=== PATIENT | female | born 1950 | race Caucasian/White ===

== ENCOUNTER 2017-07-26 23:49 | Emergency (ER) | payer MEDICARE ==
[2017-07-27] MEDS ORDERED: DIPHENOX-ATROP 2.5-0.025 MG 1 EACH TAB PO STA (00:18)
[2017-07-27] MEDS ORDERED: ONDANSETRON 4 MG/2 ML VIAL IVP STA (00:18)
[2017-07-27] MEDS ORDERED: SODIUM CHLORIDE 0.9% 1,000 ML IV STA ×2 (00:18)
--- NOTE | 2017-07-27 00:50 | ED ---
Nausea/Vomiting/Diarrhea HPI - General Chief complaint: Nausea/Vomiting/Diarrhea Stated complaint: Diarrhea x8 days Time Seen by Provider: 07/27/17 00:05 Source: patient, RN notes reviewed, old records reviewed Mode of arrival: ambulatory Limitations: no limitations - History of Present Illness Initial comments: This is a 66-year-old female presents emergency Department chief complaint of a days of diarrhea. He reports that she's been taking Imodium and Pepto-Bismol without any relief of her symptoms. She reports she has abdominal discomfort. She denies any blood in her stool. She states that she has no specific abdominal pain or tenderness. Patient states that she's had no fever or chills. She did have nausea, no vomiting today.Patient denies any recent fever , chills, shortness of breath, chest pain, back pain, abdominal pain, numbness or tingling, dysuria or hematuria, constipation, headaches or visual changes, or any other current symptoms - Related Data Home Medications Medication Instructions Recorded Confirmed Atorvastatin [Lipitor] 20 mg PO DAILY 09/11/15 07/26/17 Thyroid,Pork [[place] Thyroid] 60 mg PO BID 09/11/15 07/26/17 Valsartan/Hydrochlorothiazide 1 each PO DAILY 09/11/15 07/26/17 [Valsartan-Hctz 160-12.5 mg Tab] amLODIPine BESYLATE [Norvasc] 5 mg PO DAILY 09/11/15 07/26/17 Previous Rx's Medication Instructions Recorded Ciprofloxacin HCl [Cipro] 500 mg PO Q12HR #10 tab 07/27/17 Diphenox-Atrop 2.5-0.025 mg 1 tab PO QID PRN #12 tablet 07/27/17 [Lomotil] Allergies Allergy/AdvReac Type Severity Reaction Status Date / Time No Known Allergies Allergy Verified 07/26/17 23:57 Review of Systems ROS Statement: Those systems with pertinent positive or pertinent negative responses have been documented in the HPI. ROS Other: All systems not noted in ROS Statement are negative. Past Medical History Past Medical History: Asthma, Hypertension History of Any Multi-Drug Resistant Organisms: None Reported Past Surgical History: Hysterectomy Past Psychological History: No Psychological Hx Reported Smoking Status: Former smoker Past Alcohol Use History: None Reported Past Drug Use History: None Reported General Exam - General Exam Comments Initial Comments: 66-year-old female. No distress. Limitations: no limitations General appearance: alert, in no apparent distress Head exam: Present: atraumatic, normocephalic, normal inspection Eye exam: Present: normal appearance, PERRL, EOMI. Absent: scleral icterus, conjunctival injection, periorbital swelling ENT exam: Present: normal exam, mucous membranes moist Neck exam: Present: normal inspection Respiratory exam: Present: normal lung sounds bilaterally. Absent: respiratory distress, wheezes, rales, rhonchi, stridor Cardiovascular Exam: Present: regular rate, normal rhythm, normal heart sounds. Absent: systolic murmur, diastolic murmur, rubs, gallop, clicks GI/Abdominal exam: Present: soft, normal bowel sounds. Absent: distended, tenderness, guarding, rebound, rigid Extremities exam: Present: normal inspection, full ROM, normal capillary refill. Absent: tenderness, pedal edema, joint swelling, calf tenderness Back exam: Present: normal inspection Neurological exam: Present: alert, oriented X3, CN II-XII intact Psychiatric exam: Present: normal affect, normal mood Course Vital Signs 07/26/17 07/27/17 23:55 02:32 Temperature 96.8 F L 97.4 F L Pulse Rate 83 78 Respiratory 18 16 Rate Blood Pressure 133/74 126/71 O2 Sat by Pulse 97 98 Oximetry Medical Decision Making - Medical Decision Making This patient is a 66 year old female with CC of diarrhea for 8 days. She reports it started after she ate some food taht did not agree with her. Patient states she has no abdominal pain, and patient denies any other symptoms. Patient was concerned of dehydration. Patient was given lab work and stool sample obtained. Patient has positve fecal occult blood test. At this time with proloned diarrhea and positive occult, I will treat patient with 5 days of cipro. Patient given first dose in EC. Discussed prompt follow up with PCP and stool cuture pending. Discussed return parameters including fever and abodminal pain. - Lab Data Result diagrams: 07/27/17 00:36 07/27/17 00:36 Lab Results 07/27/17 07/27/17 07/27/17 Range/Units 00:36 00:36 00:36 WBC 8.5 (3.8-10.6) k/uL RBC 4.61 (3.80-5.40) m/uL Hgb 13.8 (11.4-16.0) gm/dL Hct 40.1 (34.0-46.0) % MCV 86.9 (80.0-100.0) fL MCH 30.0 (25.0-35.0) pg MCHC 34.5 (31.0-37.0) g/dL RDW 11.5 (11.5-15.5) % Plt Count 339 (150-450) k/uL Neutrophils % 80 % Lymphocytes % 11 % Monocytes % 6 % Eosinophils % 1 % Basophils % 0 % Neutrophils # 6.9 (1.3-7.7) k/uL Lymphocytes # 1.0 (1.0-4.8) k/uL Monocytes # 0.5 (0-1.0) k/uL Eosinophils # 0.1 (0-0.7) k/uL Basophils # 0.0 (0-0.2) k/uL Sodium (137-145) mmol/L Potassium (3.5-5.1) mmol/L Chloride (98-107) mmol/L Carbon Dioxide (22-30) mmol/L Anion Gap mmol/L BUN (7-17) mg/dL Creatinine (0.52-1.04) mg/dL Est GFR (MDRD) Af Amer (>60 ml/min/1.73 sqM) Est GFR (MDRD) Non-Af (>60 ml/min/1.73 sqM) Glucose (74-99) mg/dL Calcium (8.4-10.2) mg/dL Total Bilirubin (0.2-1.3) mg/dL AST (14-36) U/L ALT (9-52) U/L Alkaline Phosphatase (38-126) U/L Total Protein (6.3-8.2) g/dL Albumin (3.5-5.0) g/dL Amylase 49 (30-110) U/L Lipase 45 (23-300) U/L Urine Color Yellow Urine Appearance Clear (Clear) Urine pH 5.5 (5.0-8.0) Ur Specific [place] 1.015 (1.001-1.035) Urine Protein 1+ H (Negative) Urine Glucose (UA) Negative (Negative) Urine Ketones Negative (Negative) Urine Blood Negative (Negative) Urine Nitrite Negative (Negative) Urine Bilirubin Negative (Negative) Urine Urobilinogen <2.0 (<2.0) mg/dL Ur Leukocyte Esterase Negative (Negative) Stool Occult Blood (Negative) C. difficile (EIA) Intrp (Negative) 07/27/17 07/27/17 07/27/17 Range/Units 00:36 00:36 00:50 WBC (3.8-10.6) k/uL RBC (3.80-5.40) m/uL Hgb (11.4-16.0) gm/dL Hct (34.0-46.0) % MCV (80.0-100.0) fL MCH (25.0-35.0) pg MCHC (31.0-37.0) g/dL RDW (11.5-15.5) % Plt Count (150-450) k/uL Neutrophils % % Lymphocytes % % Monocytes % % Eosinophils % % Basophils % % Neutrophils # (1.3-7.7) k/uL Lymphocytes # (1.0-4.8) k/uL Monocytes # (0-1.0) k/uL Eosinophils # (0-0.7) k/uL Basophils # (0-0.2) k/uL Sodium 137 (137-145) mmol/L Potassium 3.7 (3.5-5.1) mmol/L Chloride 99 (98-107) mmol/L Carbon Dioxide 25 (22-30) mmol/L Anion Gap 13 mmol/L BUN 17 (7-17) mg/dL Creatinine 0.80 (0.52-1.04) mg/dL Est GFR (MDRD) Af Amer >60 (>60 ml/min/1.73 sqM) Est GFR (MDRD) Non-Af >60 (>60 ml/min/1.73 sqM) Glucose 102 H (74-99) mg/dL Calcium 9.6 (8.4-10.2) mg/dL Total Bilirubin 1.0 (0.2-1.3) mg/dL AST 23 (14-36) U/L ALT 26 (9-52) U/L Alkaline Phosphatase 65 (38-126) U/L Total Protein 6.7 (6.3-8.2) g/dL Albumin 4.1 (3.5-5.0) g/dL Amylase (30-110) U/L Lipase (23-300) U/L Urine Color Urine Appearance (Clear) Urine pH (5.0-8.0) Ur Specific [place] (1.001-1.035) Urine Protein (Negative) Urine Glucose (UA) (Negative) Urine Ketones (Negative) Urine Blood (Negative) Urine Nitrite (Negative) Urine Bilirubin (Negative) Urine Urobilinogen (<2.0) mg/dL Ur Leukocyte Esterase (Negative) Stool Occult Blood Positive H (Negative) C. difficile (EIA) Intrp Negative (Negative) - Radiology Data Radiology results: report reviewed JUB shows normal bowel gas pattern. Disposition Clinical Impression: Diarrhea, Occult blood positive stool Disposition: HOME SELF-CARE Condition: Good Instructions: Acute Diarrhea (ED) Additional Instructions: Patient advised to follow-up with PCP within the next 1-2 days. Rest remain hydrated. Take the medicine as prescribed. Return to emergency department if any alarming signs or symptoms occur. Prescriptions: Ciprofloxacin HCl [Cipro] 500 mg PO Q12HR #10 tab Diphenox-Atrop 2.5-0.025 mg [Lomotil] 1 tab PO QID PRN #12 tablet PRN Reason: Diarrhea Referrals: Ramana John DO [Primary Care Provider] - 1-2 days Tomeka Kapoor MD [STAFF PHYSICIAN] - 1-2 days Time of Disposition: 02:13
[2017-07-27 01:02] LABS: Basophils % (A) 0 %; Eosinophils # (A) 0.1 k/uL (0-0.7); Eosinophils % (A) 1 %; HCT 40.1 % (34.0-46.0); HGB 13.8 gm/dL (11.4-16.0); Lymphocytes % (A) 11 %; MCHC 34.5 g/dL (31.0-37.0); MCV 86.9 fL (80.0-100.0); Mean Platelet Volume 6.1; Monocytes # (A) 0.5 k/uL (0-1.0); Monocytes % (A) 6 %; Neutrophils # (A) 6.9 k/uL (1.3-7.7); Neutrophils % (A) 80 %; Platelet Count 339 k/uL (150-450); RBC 4.61 m/uL (3.80-5.40); RDW 11.5 % (11.5-15.5); WBC 8.5 k/uL (3.8-10.6)
[2017-07-27 01:05] LABS: Appearance,Urine Clear (Clear); Color,Urine Yellow; Glucose,Urine (UA) Negative (Negative); Ketones,Urine Negative (Negative); PH, Urine 5.5 (5.0-8.0); Protein,Urine 1+ (Negative); Specific Gravity,Urine 1.015 (1.001-1.035)
[2017-07-27 01:06] LABS: Bilirubin,Urine Negative (Negative); Blood,Urine Negative (Negative); Leukocyte Esterase,Urine Negative (Negative); Nitrite,Urine Negative (Negative); Urobilinogen,Urine <2.0 mg/dL (<2.0)
[2017-07-27 01:10] LABS: Amylase 49 U/L (30-110); Lipase 45 U/L (23-300)
--- NOTE | 2017-07-27 01:10 | XR ---
EXAMINATION TYPE: XR KUB DATE OF EXAM: 07/27/2017 COMPARISON: NONE HISTORY: Diarrhea for one week. Weakness. TECHNIQUE: 2 views FINDINGS: There is no sign of intestinal obstruction or pneumoperitoneum. Fecal pattern is normal. Th ere are no pathologic calcifications over the kidneys. Lung bases are clear. There is no evidence of a mass. IMPRESSION: Nonacute abdomen.
[2017-07-27] MEDS ORDERED: SODIUM CHLORIDE 0.9% 1,000 ML IV SCH (01:45)
[2017-07-27 01:53] LABS: ALT 26 U/L (9-52); AST 23 U/L (14-36); Albumin 4.1 g/dL (3.5-5.0); Alkaline Phosphatase 65 U/L (38-126); Anion Gap 13 mmol/L; Blood Urea Nitrogen 17 mg/dL (7-17); Calcium 9.6 mg/dL (8.4-10.2); Carbon Dioxide 25 mmol/L (22-30); Chloride 99 mmol/L (98-107); Glucose 102 mg/dL (74-99); Potassium 3.7 mmol/L (3.5-5.1); Sodium 137 mmol/L (137-145); Total Protein 6.7 g/dL (6.3-8.2)
[2017-07-27] MEDS ORDERED: CIPROFLOXACIN HCL 500 MG TAB PO STA (02:13)
[2017-07-27] MEDS ORDERED: DIPHENOX-ATROP STARTER PACK 8 TAB BTL PO STA (02:14)
[2017-07-27 02:33] VITALS: BP 126/71; PULSE 78; RESP 16; TEMP 97.4
[2017-08-06 10:22] LABS: Hyaline Casts,Urine 137 /lpf (0-2); Mucus,Urine Many /hpf; Squamous Epithelial Cell,Urine 2 /hpf (0-4); WBC,Urine 9 /hpf (0-5)
== END 2017-07-27 02:40 | disposition home or self-care (01) ==
LOC: EC 23:49
DX: R19.7 Diarrhea, unspecified (principal); R19.5 Other fecal abnormalities; R11.0 Nausea; I10 Essential (primary) hypertension; Z90.710 Acquired absence of both cervix and uterus; Z87.891 Personal history of nicotine dependence; Z79.899 Other long term (current) drug therapy
CPT/HCPCS: 36415; 74018; 80053; 81001; 82150; 82272; 83690; 85025; 87045; 87046; 87324; 89055; 96361; 96374; 99284

== ENCOUNTER → 2018-08-11 | Outpatient (CLI) | payer MEDICARE ==
[2018-08-11 14:27] LABS: Blood Urea Nitrogen 16 mg/dL (7-17)
--- NOTE | 2018-08-11 15:35 | CT ---
EXAMINATION TYPE: CT brain w con DATE OF EXAM: 08/11/2018 COMPARISON: MRI/MRA brain 2012 HISTORY: headaches RT side CT DLP: 1222 mGycm Automated exposure control for dose reduction was used. CONTRAST: CT scan of the head is performed with IV Contrast, patient injected with 100 mL of Isovue 300. FINDINGS: There is no abnormal enhancing mass or midline shift identified. The ventricles and sulci are within normal limits in size. Some low-attenuation in the deep and periventricular white matter remains pre sent. Hyperostosis frontalis is seen. The globes are intact and the visualized sinuses are clear. IMPRESSION: Persistent mild white matter changes felt to be on basis of product of chronic small vess el ischemic change. No enhancing masses are noted.
== END | disposition home or self-care (01) ==
LOC: RADCTMAIN 13:32
PROVIDERS: ATTEND Family Medicine
DX: R51 Headache (principal); Z01.812 Encounter for preprocedural laboratory examination
CPT/HCPCS: 82565; 84520; 70460; Q9967

== ENCOUNTER → 2018-11-15 | Outpatient (CLI) | payer MEDICARE ==
[2018-11-15 14:44] VITALS: BP 136/83; PULSE 80; RESP 18; TEMP 98.3; BMI 32.2
--- NOTE | 2018-11-15 15:44 | P.HPOB ---
History of Present Illness H&P Date: 11/15/18 Chief Complaint: The patient is here for her routine gynecologic exam and ma mmogram. This is a 68-year-old G to P2 with an LMP of 1989. The patient is here to establish with this office. She is status post [facility] BSO in 1989 for benign reasons. The patient has been told she has a cystocele and rectocele. She has had some issues with urinary leakage. She has considered surgical options, but has decided to proceed conservatively without surgery. The patient is otherwise without gynecologic complaints. It is been about 4 years since her last pelvic exam. Review of Systems She believes she is getting about 25 pounds over the last year. She had previously been eating healthy, but more recently has gotten off of this. She denies respiratory, cardiac and G.I. problems. She denies maltreatment or problems with falling. : she occasionally will have leakage when she stands up from a reclined position Past Medical History Past Medical History: Asthma, GERD/Reflux, Hyperlipidemia, Hypertension, Thyroid Disorder Additional Past Medical History / Comment(s): Hypothyroid. Osteopenia status post Actonel use for 5 years. PAST [employer] HISTORY: She has no history of STDs. She did have endometriosis. She has tested BRCA negative. History of Any Multi-Drug Resistant Organisms: None Reported Past Surgical History: Hysterectomy Additional Past Surgical History / Comment(s): [facility] BSO in 1989. Past Psychological History: No Psychological Hx Reported Smoking Status: Former smoker Past Alcohol Use History: None Reported Additional Past Alcohol Use History / Comment(s): Brief smoker as a teenager. 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 - Past Family History Sister(s) Family Medical History: Cancer Additional Family Medical History / Comment(s): 5 of 7 sisters had breast cancer. 3 of them are positive for BRCA. One sister who had breast cancer also had ovarian cancer. Niece Family Medical History: Cancer Additional Family Medical History / Comment(s): Breast cancer. Medications and Allergies Home Medications Medication Instructions Recorded Confirmed Type Atorvastatin [Lipitor] 20 mg PO DAILY 09/11/15 11/15/18 History Thyroid,Pork [[place] Thyroid] 60 mg PO BID 09/11/15 07/26/17 History amLODIPine BESYLATE [Norvasc] 5 mg PO DAILY 09/11/15 11/15/18 History Calcium Carbonate [Calcium] 600 mg PO 11/15/18 History Estradiol [Vagifem] 10 mcg VG 11/15/18 History Fish Oil/Dha/Epa [Fish Oil 1,200 1 each PO 11/15/18 History mg Fish Oil] Olmesartan [Benicar] 20 mg PO DAILY 11/15/18 11/15/18 History Omeprazole [PriLOSEC] 10 mg PO 11/15/18 History Solifenacin Succinate [Vesicare] 10 mg PO 11/15/18 History Allergies Allergy/AdvReac Type Severity Reaction Status Date / Time No Known Allergies Allergy Verified 07/26/17 23:57 Exam Vital Signs Temp Pulse Resp BP Pulse Ox 11/15/18 14:39 98.3 F 80 18 136/83 97 Intake and Output 11/15/18 11/15/18 11/15/18 06:59 14:59 22:59 Other: Weight 96.162 kg Height 5'8", weight 212 pounds, BMI 32.2. This is a well-developed well-nourished white female who is alert and oriented times 3 in no acute distress. HEENT: Within normal limits. NECK: Supple without mass or thyromegaly. CHEST AND LUNGS: Clear to auscultation. HEART: Regular rate and rhythm. BREASTS: Are without mass or discharge. AXILLARY EXAM: Negative for adenopathy. BACK: Negative for CVA tenderness. ABDOMEN: Soft, nontender, without palpable masses. PELVIC EXAM: External genitalia appears normal with mild to moderate atrophy. Vagina appears normal mild to moderate atrophy. There is a grade 1 to 2 cystocele. There is mild to moderate mobility with cough and Valsalva. No urinary leakage was demonstrated. There is a grade 2 rectocele which approaches the introitus with Valsalva. Bimanual examination is negative for mass or tenderness. RECTAL EXAM: Rectovaginal exam is negative for mass or tenderness and is negative for occult blood. The rectal exam disconfirm the rectocele. There is no evidence of enterocele. EXTREMITIES: Nontender. IMPRESSION: 1. 68-year-old menopausal female status post DEE for benign reasons with grade 2 cystocele and grade 2 to 3 the rectocele. 2. History of osteopenia status post 5 years use of Actonel. 3. Mild stress urinary incontinence and occasional urge incontinence (mixed). PLAN: 1. Pap smears have been discontinued. 2. Self breast awareness was discussed with the patient. 3. Screening mammogram will be done today. 4. Osteoporosis prevention was discussed. I have stressed the importance of adequate calcium, vitamin D and regular exercise. Recommended amounts of calcium and vitamin D were also discussed. I have recommended repeating the bonus he testing since it is been about 2 years since her last one. The order slip was given to the patient for this. 5. She does receive flu shots in the fall. 6. We had a long discussion regarding cystocele, rectocele, and urinary incontinence. I recommended that she do [place] exercises with timed voids. If urinary incontinence is worsening, she will consider reevaluation by Dr. Juarez, her urologist. Rectocele and cystocele repair can be evaluated by a transit manager. We also discussed the option of a gynecologic urologist for these types of problems. 7. She will return in one to 2 years for her well woman exam.
--- NOTE | 2018-11-16 09:36 | MM ---
Reason for exam: screening (asymptomatic). Last mammogram was performed 19 years and 2 months ago. History: Patient is postmenopausal. Family history of premenopausal breast cancer in 2 sisters. Physical Findings: A clinical breast exam by your physician is recommended on an annual basis and results should be correlated with mammographic findings. MG 3D Screening Mammo W/Cad Bilateral CC and MLO view(s) were taken. Prior study comparison: November 04, 2017, mammogram. October 29, 2016, mammogram. October 24, 2015, mammogram. October 18, 2014, mammogram. There are scattered fibroglandular densities. Benign appearing bilateral calcifications. Previous mammotome biopsy in the right breast. No significant changes when compared with prior studies. ASSESSMENT: Benign, BI-RAD 2 RECOMMENDATION: Routine screening mammogram of both breasts in 1 year.
== END | disposition home or self-care (01) ==
LOC: WWCWWP 14:22
PROVIDERS: ATTEND Obstetrics & Gynecology
DX: Z12.31 Encounter for screening mammogram for malignant neoplasm of breast (principal)
CPT/HCPCS: 77063; 77067

== ENCOUNTER → 2019-04-17 | Outpatient (CLI) | payer MEDICARE ==
--- NOTE | 2019-04-18 04:15 | BD ---
EXAMINATION TYPE: Axial Bone Density DATE OF EXAM: 04/17/2019 COMPARISON: 07/14/2004 CLINICAL HISTORY: 68-year-old female postmenopausal screening Height: 66.2 IN Weight: 183 LBS FRAX RISK QUESTIONS: History of Fracture in Adulthood: LEFT WRIST AGE 50 Secondary Osteoporosis: 3. Menopause before 45: YES TOTAL HYST AGE 38 RISK FACTORS HISTORY OF: History of Wrist Fracture: YES LEFT WRIST AGE 50 Active: YES Postmenopausal woman: TOTAL HYST AGE 38 Take estrogen and/or progesterone medications: NOT NOW How long: TOOK FROM AGE [age] Lost more than 2 inches in height since high school: YES 06/03" MEDICATIONS: Thyroid Medications: ARMOUR Which medication: 20 YEARS+ Additional Medications: CALCIUM, VIT D, ARMOUR, AMLODIPINE, VALSARTAN/HCT, ATORVASTATIN, EXAM MEASUREMENTS: Bone mineral densitometry was performed using the [employer] System. Bone mineral density as measured about the Lumbar spine is: ----- L1-L4(G/cm2): 1.099 T Score Values are as follows: ----- L2: -0.9 ----- L3: -0.1 ----- L4: -0.3 ----- L1-L4: -0.7 Bone mineral density has: Increased 1.0% since study of: 07/14/2004 Bone mineral density about the R hip (g/cm2): 0.863 Bone mineral density about the L hip (g/cm2): 0.864 T Score values are as follows: -----R Neck: -1.3 -----L Neck: -1.5 -----R Total: -1.4 -----L Total: -1.7 Bone mineral density has: Decreased -11.0% since study of: 07/14/2004 IMPRESSION: Osteopenia (T Score between -2.5 and -1). There is slightly increased risk of fracture and the patient may be considered for treatment. Re-Screen 2-5 years. NOTE: T-SCORE=SD OF THE YOUNG ADULT MEAN.
== END | disposition home or self-care (01) ==
LOC: RADBDWWP 12:20
PROVIDERS: ATTEND Family Medicine
DX: M85.89 Other specified disorders of bone density and structure, multiple sites (principal); M89.8X9 Other specified disorders of bone, unspecified site
CPT/HCPCS: 77080

== ENCOUNTER → 2019-08-02 | Outpatient (CLI) | payer MEDICARE ==
--- NOTE | 2019-08-02 08:24 | US ---
EXAMINATION TYPE: US abdomen complete DATE OF EXAM: 08/02/2019 COMPARISON: NONE CLINICAL HISTORY: R19.7 Diarrhea, unspecified. EXAM MEASUREMENTS: Liver Length: 15.4 cm Gallbladder Wall: 0.1 cm CBD: 0.4 cm Spleen: 10.2 cm Right Kidney: 11.7 x 3.9 x 4.9 cm Left Kidney: 11.3 x 3.8 x 4.3 cm Pancreas: Tail obscured by overlying bowel gas, otherwise wnl Liver: wnl Gallbladder: wnl Evidence for sonographic Spivey's sign: CBD: wnl Spleen: wnl Right Kidney: mild hydronephrosis. Left Kidney: echogenic foci, possible stone measuring 0.3 x 0.1 x 0.2cm Upper IVC: wnl Abd Aorta: bifurcation obscured by overlying bowel gas The liver is homogenous. The intrahepatic portion of the IVC and proximal abdominal aorta are within normal limits. There is no evidence of cholelithiasis. Common bile duct is unremarkable. The visu alized portions of the pancreas are homogenous. The spleen is unremarkable. No renal lesions are seen. IMPRESSION: 1. Mild right-sided hydronephrosis. Etiology of is not seen on ultrasound. 2. Possible punctate 3 mm left renal calculus versus small vessel atherosclerosis.
--- NOTE | 2019-08-02 08:26 | US ---
EXAMINATION TYPE: US pelvic limited DATE OF EXAM: 08/02/2019 COMPARISON: NONE CLINICAL HISTORY: R19.7 Diarrhea, unspecified. TECHNIQUE: Transabdominal (TA). Date of LMP: 30 years prior EXAM MEASUREMENTS: Uterus: Surgically absent Endometrial Stripe: Surgically absent Right Ovary: Surgically absent Left Ovary: Surgically absent 1. Uterus: Surgically absent 2. Endometrium: Surgically absent 3. Right Ovary: Surgically absent 4. Left Ovary: Surgically absent 5. Bilateral Adnexa: wnl 6. Posterior cul-de-sac: wnl 7. Bladder: wnl IMPRESSION: Surgical absence of the uterus and bilateral ovaries. Bowel is seen in the pelvis. Urinar y bladder is unremarkable.
== END | disposition home or self-care (01) ==
LOC: RADUSWWP 06:51
PROVIDERS: ATTEND Family Medicine
DX: R19.7 Diarrhea, unspecified (principal); N13.30 Unspecified hydronephrosis; Z90.722 Acquired absence of ovaries, bilateral; Z90.710 Acquired absence of both cervix and uterus
CPT/HCPCS: 76700; 76857

== ENCOUNTER → 2019-08-17 | Outpatient (CLI) | payer MEDICARE ==
[2019-08-17 13:47] LABS: African American GFR (CKD) >90 (>60 ml/min/1.73 sqM); Blood Urea Nitrogen 17 mg/dL (7-17); Non-African American GFR(CKD) 87 (>60 ml/min/1.73 sqM)
--- NOTE | 2019-08-17 16:48 | CT ---
EXAMINATION TYPE: CT abdomen pelvis w con DATE OF EXAM: 08/17/2019 HISTORY: Hydronephrosis CT DLP: 922.4mGycm Automated Exposure Control for Dose Reduction was Utilized. CONTRAST: CT scan of the abdomen and pelvis is performed with IV Contrast, patient injected with 100 mL of Isov ue 300. COMPARISON: Abdominal ultrasound dated 08/02/2019 and pelvic ultrasound of the same date. FINDINGS: LUNG BASES: No significant abnormality is appreciated. LIVER/GB: No significant abnormality is appreciated. No radiopaque calculi in the gallbladder. No int rahepatic biliary ductal dilatation. PANCREAS: No significant abnormality is seen. No ductal dilatation seen. SPLEEN: No splenomegaly. ADRENALS: No nodularity or thickening. KIDNEYS: There is redemonstration of moderate right-sided hydronephrosis and proximal hydroureter. Th e mid and distal ureter are nondilated. There is focal narrowing on sagittal images series 7 image 38 of the ureter at the ureteropelvic junction. This is also seen on coronal image 39. There is delayed excretion into the ureter on the right in comparison to the left on delayed acquisition. Very subtle delayed enhancement of the right kidney on cortical medullary imaging. No radiopaque obstructing raissa culus. No left-sided hydronephrosis. BOWEL: Small hiatal hernia. No dilated large or small bowel. Suboptimal evaluation of the colon is co ntrast does not extend into the colon and there is decompression of the transverse colon, sigmoid col on and descending colon. LYMPH NODES: No greater than 1cm abdominal or pelvic lymph nodes are appreciated. OSSEOUS STRUCTURES: Mild diffuse osseous demineralization. Multilevel Schmorl's nodes. Mild degenerat nura change of the spine. OTHER: Moderate atherosclerosis of the abdominal aorta and its branches is seen. Very small fat fille d periumbilical hernia. IMPRESSION: Persistent moderate right hydronephrosis with narrowing of the right ureteropelvic junction. No extri nsic masses seen nor radiopaque obstructing calculus. Primary consideration is for ureteropelvic stri cture of unknown chronicity.
== END | disposition home or self-care (01) ==
LOC: RADCTMAIN 12:40
PROVIDERS: ATTEND Urology
DX: N13.30 Unspecified hydronephrosis (principal)
CPT/HCPCS: 82565; 84520; 74177; 36415; Q9967

== ENCOUNTER → 2019-12-06 | Outpatient (CLI) | payer MEDICARE ==
--- NOTE | 2019-12-07 10:44 | MM ---
Reason for exam: screening (asymptomatic). Last mammogram was performed 1 year and 1 month ago. History: Patient is postmenopausal. Family history of premenopausal breast cancer in 2 sisters. Took hormonal contraceptives for 7 years. Physical Findings: A clinical breast exam by your physician is recommended on an annual basis and results should be correlated with mammographic findings. MG 3D Screening Mammo W/Cad Bilateral CC and MLO view(s) were taken. Prior study comparison: November 15, 2018, bilateral MG 3d screening mammo w/cad. November 04, 2017, mammogram. The breast tissue is heterogeneously dense. This may lower the sensitivity of mammography. Stable benign calcifications. There is no discrete abnormality. No significant changes when compared with prior studies. ASSESSMENT: Benign, BI-RAD 2 RECOMMENDATION: Routine screening mammogram of both breasts in 1 year.
== END | disposition home or self-care (01) ==
LOC: RADMAMWWP 08:51
PROVIDERS: ATTEND Obstetrics & Gynecology
DX: Z08 Encounter for follow-up examination after completed treatment for malignant neoplasm (principal); Z80.3 Family history of malignant neoplasm of breast
CPT/HCPCS: 77063; 77067

== ENCOUNTER → 2019-12-06 | Outpatient (CLI) | payer MEDICARE ==
--- NOTE | 2019-12-06 09:09 | P.HPOB ---
History of Present Illness H&P Date: 12/06/19 Chief Complaint: The patient is here for her routine gynecologic exam and ma mmogram. This is a 69-year-old with an LMP of 1989. She is status post DEE/BSO in 1989 for benign reasons. The patient states she has occasionally noticed a slight fullness in the vagina and thinks at times she can touch a bulge at the vaginal opening. She states it is not causing her any significant problems at this time, but she is considering some type of surgical treatment for pelvic prolapse in the future. She is otherwise without complaints. Review of Systems She has lost about 15 pounds over the past year. She denies respiratory, cardiac and G.I. problems. She denies maltreatment or problems with falling. : she denies any significant problems with urinary leakage. Past Medical History Past Medical History: Asthma, GERD/Reflux, Hyperlipidemia, Hypertension, Thyroid Disorder Additional Past Medical History / Comment(s): Hypothyroid. Osteopenia status post Actonel use for 5 years. 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 She did have endometriosis. She has tested BRCA negative. History of Any Multi-Drug Resistant Organisms: None Reported Past Surgical History: Hysterectomy Additional Past Surgical History / Comment(s): DEE BSO in 1989. Foot surgery. Past Psychological History: No Psychological Hx Reported Smoking Status: Former smoker Past Alcohol Use History: None Reported Additional Past Alcohol Use History / Comment(s): Brief smoker as a teenager. 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 - Past Family History Sister(s) Family Medical History: Cancer Additional Family Medical History / Comment(s): 5 of 7 sisters had breast cancer. 3 of them are positive for BRCA. One sister who had breast cancer also had ovarian cancer. Niece Family Medical History: Cancer Additional Family Medical History / Comment(s): Breast cancer. Medications and Allergies Home Medications Medication Instructions Recorded Confirmed Type Atorvastatin [Lipitor] 20 mg PO DAILY 09/11/15 12/06/19 History Thyroid,Pork [[place] Thyroid] 60 mg PO BID 09/11/15 12/06/19 History amLODIPine BESYLATE [Norvasc] 5 mg PO DAILY 09/11/15 12/06/19 History Calcium Carbonate [Calcium] 600 mg PO DAILY 11/15/18 12/06/19 History Estradiol [Vagifem] 10 mcg VG DAILY 11/15/18 12/06/19 History Olmesartan [Benicar] 20 mg PO DAILY 11/15/18 12/06/19 History Allergies Allergy/AdvReac Type Severity Reaction Status Date / Time No Known Allergies Allergy Verified 12/06/19 08:02 Exam Vital Signs Temp Pulse Resp BP Pulse Ox 12/06/19 08:07 98.3 F 66 18 133/82 97 Intake and Output 12/05/19 12/06/19 12/06/19 22:59 06:59 14:59 Other: Weight 87.997 kg Height 5 feet 7 inches, weight 197 pounds, BMI 30.4. This is a well-developed well-nourished white female who is alert and oriented times 3 in no acute distress. HEENT: Within normal limits. NECK: Supple without mass or thyromegaly. CHEST AND LUNGS: Clear to auscultation. HEART: Regular rate and rhythm. BREASTS: Are without mass or discharge. AXILLARY EXAM: Negative for adenopathy. BACK: Negative for CVA tenderness. ABDOMEN: Soft, nontender, without palpable masses. PELVIC EXAM: External genitalia appears normal with mild to moderate atrophy. Vagina appears normal with mild atrophy. There is a grade 2 rectocele noted at rest. No significant cystocele is noted at rest. With Valsalva the rectocele approaches the introitus and a grade 1 cystocele is noted The vaginal cuff is well supported. No significant enterocele is noted. Bimanual examination is negative for mass or tenderness. RECTAL EXAM: Rectovaginal exam is negative for mass or tenderness and is negative for occult blood. Rectal exam does confirm a rectocele. EXTREMITIES: Nontender. IMPRESSION: 1. 69-YEAR-OLD MENOPAUSAL FEMALE STATUS POST DEE/BSO FOR BENIGN REASONS WITH MINIMALLY SYMPTOMATIC GRADE 2-3 RECTOCELE AND A GRADE 1 CYSTOCELE. 2. History of osteopenia status post 5 years use of Actonel. 3.strong family history of breast cancer in several sisters. The patient tested negative for BRCA . PLAN: 1. PAP smears have been discontinued. 2. Self breast awareness was discussed with the patient. 3. screening mammogram will be done today. 4. Osteoporosis prevention was discussed. I have stressed the importance of adequate calcium, vitamin D and regular exercise. Recommended amounts of calcium and vitamin D were also discussed. We will plan on repeating bone density testing in approximately 2 years. 5. She is contemplating surgery for her rectocele. She is not interested in doing this at this time and, but she was instructed to call if she would like to proceed with this type of surgery and I can make a referral for her. 6. She was advised to return in one year for her annual well woman exam.
[2019-12-08 09:18] VITALS: BP 133/82; PULSE 66; RESP 18; TEMP 98.3
== END | disposition home or self-care (01) ==
LOC: WWCWWP 07:53
PROVIDERS: ATTEND Obstetrics & Gynecology
DX: Z53.9 Procedure and treatment not carried out, unspecified reason (principal)

== ENCOUNTER → 2020-12-18 | Outpatient (CLI) | payer MEDICARE ==
[2020-12-18 08:13] VITALS: BP 130/81; PULSE 78; RESP 16; TEMP 98.4
--- NOTE | 2020-12-18 09:07 | P.HPOB ---
History of Present Illness H&P Date: 12/18/20 Chief Complaint: The patient is here for her routine gynecologic exam and ma mmogram. This is a 70-year-old with an LMP of 1989. The patient is status post DEE/BSO in 1989 for benign reasons. She is having more fullness in the vagina and can notice a bulge slightly protruding at the vaginal opening. She has a known rectocele. She is also having some urinary incontinence with coughing and some urge incontinence if she does not get to the bathroom right away. She has seen someone at [facility] about the incontinence who recommended discussed surgery for the incontinence, but would need a document imaging manager to deal with the vaginal repairs. She would prefer to see one person to take care of these problems. She is otherwise without complaints. Review of Systems She has lost about 7 pounds over the past year. She denies respiratory, cardiac and G.I. problems. She has experienced occasional dizziness and is undergoing a workup for this. She denies maltreatment or problems with falling. : She has had some issues with urinary leakage as in the HPI. She has been able to avoid some of the issues by voiding frequently and knowing where restrooms are. Past Medical History Past Medical History: Asthma, GERD/Reflux, Hyperlipidemia, Hypertension, Thyroid Disorder Additional Past Medical History / Comment(s): Hypothyroid. Osteopenia status post Actonel use for 5 years. 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 She did have endometriosis. She has tested BRCA negative. History of Any Multi-Drug Resistant Organisms: None Reported Past Surgical History: Hysterectomy Additional Past Surgical History / Comment(s): DEE BSO in 1989. Foot surgery. Colonoscopy 2016(next after 7yr). Past Psychological History: No Psychological Hx Reported Smoking Status: Former smoker Past Alcohol Use History: Rare (0-1 per year) Additional Past Alcohol Use History / Comment(s): Brief smoker as a teenager. 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 - Past Family History Sister(s) Family Medical History: Cancer Additional Family Medical History / Comment(s): 5 of 7 sisters had breast cancer. 3 of them are positive for BRCA. One sister who had breast cancer also had ovarian cancer. Niece Family Medical History: Cancer Additional Family Medical History / Comment(s): Breast cancer. Medications and Allergies Home Medications Medication Instructions Recorded Confirmed Type Atorvastatin [Lipitor] 20 mg PO DAILY 09/11/15 12/18/20 History Thyroid,Pork [[place] Thyroid] 60 mg PO BID 09/11/15 12/18/20 History amLODIPine BESYLATE [Norvasc] 5 mg PO QAM 09/11/15 12/18/20 History Calcium Carbonate [Calcium] 600 mg PO QAM 11/15/18 12/18/20 History Estradiol [Vagifem] 10 mcg VG WEEKLY 11/15/18 12/18/20 History Olmesartan [Benicar] 20 mg PO HS 11/15/18 12/18/20 History Allergies Allergy/AdvReac Type Severity Reaction Status Date / Time No Known Allergies Allergy Verified 12/18/20 08:06 Exam Vital Signs Temp Pulse Resp BP Pulse Ox 12/18/20 08:09 98.4 F 78 16 130/81 96 Intake and Output 12/17/20 12/18/20 12/18/20 22:59 06:59 14:59 Other: Weight 86.183 kg Height 5 feet 8 inches, weight 190 pounds, BMI 28.9. This is a well-developed well-nourished white female who is alert and oriented times 3 in no acute distress. HEENT: Within normal limits. NECK: Supple without mass or thyromegaly. CHEST AND LUNGS: Clear to auscultation. HEART: Regular rate and rhythm. BREASTS: Are without mass or discharge. AXILLARY EXAM: Negative for adenopathy. BACK: Negative for CVA tenderness. ABDOMEN: Soft, nontender, without palpable masses. PELVIC EXAM: External genitalia appears normal with mild to moderate atrophy. Vagina appears normal with mild to moderate atrophy. The vaginal mucosa overlying the rectocele does not appear inflamed, thickened or ulcerated. There is a grade 3 rectocele which fills the introitus with Valsalva. There is a minimal cystocele with no urinary leakage demonstrated with Valsalva. Bimanual examination is negative for mass or tenderness. RECTAL EXAM: Rectovaginal exam is negative for mass or tenderness and is negative for occult blood. The rectal exam confirms a rectocele without sign ificant enterocele. EXTREMITIES: Nontender. IMPRESSION: 1. 70-year-old menopausal female status post DEE/BSO for benign reasons with symptomatic grade 3 rectocele. 2. Mixed urinary incontinence with minimal cystocele. 3. History of osteopenia status post 5 years use of Actonel in the past. 4. Strong family history of breast cancer in several sisters. The patient has tested negative for BRCA mutation. PLAN: 1. Pap smears have been discontinued. 2. Self breast awareness was discussed with the patient. 3. Screening mammogram will be done today. 4. We have had a long discussion regarding her rectocele and urinary incontinence. She would like to be referred for possible surgical correction and is interested in seeing a uro-document imaging manager. She will be referred to Dr. Huffman who works out of [facility] for evaluation and treatment. 5. Osteoporosis prevention was discussed. I have stressed the importance of adequate calcium, vitamin D and regular exercise. Recommended amounts of calcium and vitamin D were also discussed. She will be due for her own density testing next year and she will have this done at her next annual exam. 6. She has completed her Covid vaccination series and did get a flu shot last fall. 7. She states she did have a Cologuard test which was negative in February 2020 and plans on having another colonoscopy in 2 years. 8. She will continue to use Vagifem as directed. The electronic prescription will be sent to [facility]. 9. She was advised to return in one year for her annual well woman exam.
--- NOTE | 2020-12-18 14:02 | MM ---
Reason for exam: screening (asymptomatic). Last mammogram was performed 1 year ago. History: Patient is postmenopausal. Family history of premenopausal breast cancer in 2 sisters. Stereotactic core biopsy of the right breast. Took hormonal contraceptives for 7 years. Physical Findings: A clinical breast exam by your physician is recommended on an annual basis and results should be correlated with mammographic findings. MG 3D Screening Mammo W/Cad Bilateral CC and MLO view(s) were taken. Prior study comparison: December 06, 2019, bilateral MG 3d screening mammo w/cad. November 15, 2018, bilateral MG 3d screening mammo w/cad. There are scattered fibroglandular densities. Right biopsy clips. ASSESSMENT: Benign, BI-RAD 2 RECOMMENDATION: Routine screening mammogram of both breasts in 1 year.
== END ==
LOC: WWCWWP 07:48
PROVIDERS: ATTEND Obstetrics & Gynecology
DX: Z12.31 Encounter for screening mammogram for malignant neoplasm of breast (principal); Z01.419 Encounter for gynecological examination (general) (routine) without abnormal findings; N81.6 Rectocele; R32 Unspecified urinary incontinence; E03.9 Hypothyroidism, unspecified; N81.10 Cystocele, unspecified; E78.5 Hyperlipidemia, unspecified; I10 Essential (primary) hypertension; J45.909 Unspecified asthma, uncomplicated; Z87.39 Personal history of other diseases of the musculoskeletal system and connective tissue; Z87.891 Personal history of nicotine dependence; Z78.0 Asymptomatic menopausal state; Z80.3 Family history of malignant neoplasm of breast; Z90.722 Acquired absence of ovaries, bilateral; Z79.899 Other long term (current) drug therapy
CPT/HCPCS: 77063; 77067

== ENCOUNTER → 2021-08-29 | Outpatient (CLI) | payer MEDICARE ==
--- NOTE | 2021-08-29 09:15 | XR ---
EXAMINATION TYPE: XR toes LT DATE OF EXAM: 08/29/2021 COMPARISON: None available INDICATION: Left middle toe pain after kicking door plate TECHNIQUE: 2 views of the distal foot including the fifth toe. FINDINGS: Previous fixation of the first metatarsal head/neck with erosive changes bilaterally. Degenerative ch anges of the third distal interphalangeal joint with surrounding soft tissue swelling. No definite ac ady fracture line identified. IMPRESSION: No definite fracture line identified. Soft tissue swelling of the third toe.
== END | disposition home or self-care (01) ==
LOC: RADXRYALE 08:34
PROVIDERS: ATTEND Physician Assistant
DX: M79.89 Other specified soft tissue disorders (principal)

== ENCOUNTER → 2022-02-04 | Outpatient (CLI) | payer MEDICARE ==
[2022-02-04 11:40] VITALS: BP 144/81; PULSE 91; RESP 18; TEMP 97.9
--- NOTE | 2022-02-04 13:55 | P.HPOB ---
History of Present Illness H&P Date: 02/04/22 Chief Complaint: The patient is here for her routine gynecologic exam and ma mmogram. This is a 71-year-old with an LMP of 1989. She is status post DEE/BSO in 1989 for benign reasons. The patient underwent a retropubic tape sling procedure and rectocele repair by Dr. Oc Huffman at [facility] on 09/16/2021. She is very happy with the results. She has had an improvement in her urinary incontinence and the vaginal bulge. She is without gynecologic complaints. Review of Systems The patient has gained 3 pounds over the last year. She denies respiratory, cardiac, or G.I. problems. Past Medical History Past Medical History: Asthma, GERD/Reflux, Hyperlipidemia, Hypertension, Thyroid Disorder Additional Past Medical History / Comment(s): Hypothyroid. Osteopenia status post Actonel use for 5 years. 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 She did have endometriosis. She has tested BRCA negative. History of Any Multi-Drug Resistant Organisms: None Reported Past Surgical History: Hysterectomy Additional Past Surgical History / Comment(s): DEE BSO in 1989. Foot surgery. Colonoscopy 2015(next after 7yr). BLADDER SLING/RECTOCELE AUGUST 2021 Past Psychological History: No Psychological Hx Reported Smoking Status: Former smoker Past Alcohol Use History: Rare Additional Past Alcohol Use History / Comment(s): Brief smoker as a teenager. Past Drug Use History: None Reported Additional History: She has been since 1966 and is not sexually active. 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 - Past Family History Sister(s) Family Medical History: Cancer Additional Family Medical History / Comment(s): 5 of 7 sisters had breast cancer. 3 of them are positive for BRCA. One sister who had breast cancer also had ovarian cancer. Niece Family Medical History: Cancer Additional Family Medical History / Comment(s): Breast cancer. Medications and Allergies Home Medications Medication Instructions Recorded Confirmed Type Atorvastatin [Lipitor] 20 mg PO DAILY 09/11/15 02/04/22 History Thyroid,Pork [[place] Thyroid] 60 mg PO BID 09/11/15 02/04/22 History amLODIPine BESYLATE [Norvasc] 5 mg PO QAM 09/11/15 02/04/22 History Calcium Carbonate [Calcium] 600 mg PO QAM 11/15/18 02/04/22 History Olmesartan [Benicar] 20 mg PO HS 11/15/18 02/04/22 History estradioL [Vagifem] 10 mcg VG DIRECTED #24 tab 12/18/20 02/04/22 Rx Allergies Allergy/AdvReac Type Severity Reaction Status Date / Time No Known Allergies Allergy Verified 02/04/22 11:35 Exam Vital Signs Temp Pulse Resp BP Pulse Ox 02/04/22 11:36 97.9 F 91 18 144/81 95 Intake and Output 02/03/22 02/04/22 02/04/22 22:59 06:59 14:59 Other: Weight 87.543 kg Height 5 feet 8 inches, weight 193 pounds, BMI 29.3. This is a well-developed well-nourished white female who is alert and oriented times 3 in no acute distress. HEENT: Within normal limits. NECK: Supple without mass or thyromegaly. CHEST AND LUNGS: Clear to auscultation. HEART: Regular rate and rhythm. BREASTS: Are without mass or discharge. AXILLARY EXAM: Negative for adenopathy. BACK: Negative for CVA tenderness. ABDOMEN: Soft, nontender, without palpable masses. PELVIC EXAM: External genitalia appears normal with mild to moderate atrophy. Vagina appears normal with moderate atrophy. There is mild to moderate narrowing of the vagina. There is no evidence of prolapse. Bimanual examination is negative for mass or tenderness. RECTAL EXAM: Rectovaginal exam is negative for mass or tenderness and is negative for occult blood. EXTREMITIES: Nontender. IMPRESSION: 1. 71-year-old menopausal female status post DEE/BSO for benign reasons as well as a retropubic tape sling procedure with rectocele repair, with normal gynecologic exam. 2. History of osteopenia status post 5 years use of Actonel in the past. 3. Strong family history of breast cancer. The patient has tested negative for BRCA. PLAN: 1. Pap smears have been discontinued. 2. Self breast awareness was discussed with the patient. We have also discussed symptoms associated with inflammatory breast cancer. 3. Screening mammogram was done today. 4. Osteoporosis prevention was discussed. I have stressed the importance of adequate calcium, vitamin D and regular exercise. Recommended amounts of calcium and vitamin D were also discussed. I have recommended redoing the bone density testing which was last done in 2019. The order slip was given to the patient for this. 5. Colorectal cancer screening was discussed. She states she has been doing Cologuard testing through her PCP. 6. She has completed her Covid vaccination series and has received 2 boosters. 7. She was advised to return in one year for her annual well woman exam.
== END ==
LOC: WWCWWP 11:20
PROVIDERS: ATTEND Obstetrics & Gynecology
DX: Z12.31 Encounter for screening mammogram for malignant neoplasm of breast (principal); Z01.419 Encounter for gynecological examination (general) (routine) without abnormal findings; J45.909 Unspecified asthma, uncomplicated; E78.5 Hyperlipidemia, unspecified; I10 Essential (primary) hypertension; E03.9 Hypothyroidism, unspecified; Z87.891 Personal history of nicotine dependence; Z78.0 Asymptomatic menopausal state; Z90.710 Acquired absence of both cervix and uterus; Z87.39 Personal history of other diseases of the musculoskeletal system and connective tissue; Z80.3 Family history of malignant neoplasm of breast
CPT/HCPCS: 77063; 77067

== ENCOUNTER → 2022-02-09 | Outpatient (CLI) | payer MEDICARE ==
--- NOTE | 2022-02-09 07:49 | BD ---
EXAMINATION TYPE: Axial Bone Density DATE OF EXAM: 02/09/2022 COMPARISON: NONE CLINICAL HISTORY: 71 years year old Female. ICD-10 CODE: Z78.0 Post Menopausal Height: 5 FT 6 1/2 IN Weight: 192 FRAX RISK QUESTIONS: Alcohol (3 or more units per day): NO Family History (Parent hip fracture): NO Glucocorticoids (More than 3mos): NO (Ex: prednisone, prednisolone, methylprednisolone, dexamethasone, and hydrocortisone). History of Fracture in Adulthood: YES Secondary Osteoporosis: 1. Type 1 Diabetes: NO 2. Hyperthyroidism: NO 3. Menopause before 45: YES 4. Malnutrition: NO 5. Chronic liver disease: NO Rheumatoid Arthritis: NO Current Tobacco Use: NO RISK FACTORS HISTORY OF: History of Wrist Fracture: LEFT When: APPROX 12 YEARS AGO Surgery to Spine/Hip(right/left)/Wrist (right/left): NO Family History of Osteoporosis: NO Active: YES Diet low in dairy products/other sources of calcium: NO Postmenopausal woman: YES Take estrogen and/or progesterone medications: NONE NOW Lost more than 2 inches in height since high school: YES Frequent falls: NO Poor Health: GOOD Hyperparathyroidism: NO Adrenal Insufficiency: NO MEDICATIONS: Thyroid Medications: YES Which medication: ARMOUR THYROID How Long: APPROX 20 YEARS Additional Medications: ATORVASTATIN, AMLODIPINE, ARMOUR THYROID, DIOVAN Additional History: 2018 UNAVAILABLE FOR COMPARISON EXAM MEASUREMENTS: Bone mineral densitometry was performed using the [employer] System. Bone mineral density as measured about the Lumbar spine is: ----- L1-L4(G/cm2): 1.157 T Score Values are as follows: ----- L1: -1.9 ----- L2: -1.1 ----- L3: 0.0 ----- L4: -0.1 ----- L1-L4: -0.4 Bone mineral density has: INCREASED 1.5 % since study of: 2004 Bone mineral density about the R hip (g/cm2): 0.816 Bone mineral density about the L hip (g/cm2): 0.841 T Score values are as follows: -----R Neck: -1.6 -----L Neck: -1.4 -----R Total: -1.5 -----L Total: -1.9 Bone mineral density has: DECREASED -13.3 % since study of: 2004 FRAX%s: The graph provided illustrates a 16.7 % chance for a major osteoporotic fx and a 2.9 % chance for the hips probability for fx in 10 years time. IMPRESSION: Osteopenia involving the bilateral femurs (T Score between -2.5 and -1). There is slightly increased risk of fracture and the patient may be considered for treatment. Re-Screen 2-5 years. NOTE: T-SCORE=SD OF THE YOUNG ADULT MEAN.
== END | disposition home or self-care (01) ==
LOC: RADBDWWP 07:10
PROVIDERS: ATTEND Obstetrics & Gynecology
DX: M85.89 Other specified disorders of bone density and structure, multiple sites (principal); Z78.0 Asymptomatic menopausal state
CPT/HCPCS: 77080

== ENCOUNTER → 2023-02-09 | Outpatient (CLI) | payer MEDICARE ==
[2023-02-09 12:58] VITALS: BP 141/77; PULSE 81; RESP 17; TEMP 98.1
--- NOTE | 2023-02-09 13:34 | P.HPOB ---
History of Present Illness H&P Date: 02/09/23 Chief Complaint: The patient is here for her routine gynecologic exam and ma mmogram. This is a 72-year-old with an LMP of 1989. The patient states she has done well with the Vagifem she would like to continue this. She continues to do well after her rectocele and sling procedure done by Dr. Oc Huffman on 09/16/2021. She is without gynecologic complaints Review of Systems The patient has lost 16 pounds over the last year. 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 This is been done with dietary changes. She denies respiratory, cardiac, or G.I. problems. Past Medical History Past Medical History: Asthma, GERD/Reflux, Hyperlipidemia, Hypertension, Thyroid Disorder Additional Past Medical History / Comment(s): Hypothyroid. Osteopenia status post Actonel use for 5 years. 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 She did have endometriosis. She has tested BRCA negative. History of Any Multi-Drug Resistant Organisms: None Reported Past Surgical History: Hysterectomy Additional Past Surgical History / Comment(s): DEE BSO in 1989. Foot surgery. Colonoscopy 2015(next after 7yr). BLADDER SLING/RECTOCELE AUGUST 2021 Past Psychological History: No Psychological Hx Reported (PHQ-2 questionaire was given and she scores 0. This is a negative screen for depression.) Smoking Status: Former smoker Past Alcohol Use History: None Reported Additional Past Alcohol Use History / Comment(s): Brief smoker as a teenager. Past Drug Use History: None Reported Additional History: She has been since 1966 and is not sexually active. 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 - Past Family History Sister(s) Family Medical History: Cancer Additional Family Medical History / Comment(s): 5 of 7 sisters had breast cancer. 3 of them are positive for BRCA. One sister who had breast cancer also had ovarian cancer. Niece Family Medical History: Cancer Additional Family Medical History / Comment(s): Breast cancer. Medications and Allergies Home Medications Medication Instructions Recorded Confirmed Type Atorvastatin [Lipitor] 20 mg PO DAILY 09/11/15 02/09/23 History Thyroid,Pork [[place] Thyroid] 60 mg PO BID 09/11/15 02/09/23 History Calcium Carbonate [Calcium] 600 mg PO QAM 11/15/18 02/09/23 History Olmesartan [Benicar] 20 mg PO HS 11/15/18 02/09/23 History estradioL [Vagifem] 10 mcg VG DIRECTED #24 tab 12/18/20 02/09/23 Rx Allergies Allergy/AdvReac Type Severity Reaction Status Date / Time No Known Allergies Allergy Verified 02/09/23 12:55 Exam Vital Signs Temp Pulse Resp BP Pulse Ox 02/09/23 12:55 98.1 F 81 17 141/77 96 Intake and Output 02/08/23 02/09/23 02/09/23 22:59 06:59 14:59 Other: Weight 80.286 kg Height 5 feet 7 inches, weight 177 pounds, BMI 27.7. This is a well-developed well-nourished white female who is alert and oriented times 3 in no acute distress. HEENT: Within normal limits. NECK: Supple without mass or thyromegaly. CHEST AND LUNGS: Clear to auscultation. HEART: Regular rate. 2 irregular beats were noted over a 30sec. period. BREASTS: Are without mass or discharge. AXILLARY EXAM: Negative for adenopathy. BACK: Negative for CVA tenderness. ABDOMEN: Soft, nontender, without palpable masses. PELVIC EXAM: External genitalia appears normal with mild to moderate atrophy. Vagina appears normal mild to moderate atrophy. There is no evidence of prolapse. Bimanual examination is negative for mass or tenderness. RECTAL EXAM: Rectovaginal exam is negative for mass or tenderness and is negative for occult blood. EXTREMITIES: Nontender. IMPRESSION: 1. 72-year-old menopausal female status post DEE/BSO for benign reasons, with normal gynecologic exam. 2. History of osteopenia status post 5 years use of Actonel in the past. 3. 2 atopic heart beats over 30 seconds. Possible PVCs or PACs. 4. Doing well on vaginal estrogen for vaginal dryness symptoms. PLAN: 1. Pap smears have been discontinued. 2. Self breast awareness was discussed with the patient. We have also discussed symptoms associated with inflammatory breast cancer. 3. Screening mammogram will be done today. 4. She will continue with vaginal estrogen in the form of Vagifem 10 g inserted twice weekly into the vagina. The electronic prescription will be sent to [facility]. 5. PHQ-2 questionaire was given and she scores 0. This is a negative screen for depression. 6. She was advised to return in one year for her annual well woman exam.
--- NOTE | 2023-02-10 15:58 | MM ---
Reason for Exam: Screening (asymptomatic). Last screening mammogram was performed 12 month(s) ago. Patient History: Menarche at age 11. First Full-Term at age 27. Left ovary removed at age 38. Right ovary removed at age 38. Hysterectomy at age 38. Postmenopausal. Patient used Hormonal Contraceptives for 7 years. Stereotactic Core Biopsy on the Right side. Sister had breast cancer, age 58. Sister had breast cancer, age 40. Sister had breast cancer, age 68. Sister had breast cancer, age 79. Nephew/Niece had breast cancer, age 48. Risk Values: Ashli 5 year model risk: 7.2%. NCI Lifetime model risk: 15.8%. Prior Study Comparison: 12/06/2019 Bilateral Screening Mammogram, [facility]. 12/18/2020 Bilateral Screening Mammogram, [facility]. 02/04/2022 Bilateral MG 3D screening mammo w/cad, [facility]. Tissue Density: There are scattered fibroglandular densities. Findings: Analyzed By CAD. Pattern appears symmetrical and stable. Benign vascular calcification is present bilaterally. No significant interval changes are evident. Core marker is within the right breast. No suspicious groups of microcalcifications, spiculated or lobular masses, architectural distortion or other secondary signs of malignancy are mammographically apparent. Overall Assessment: Benign, BI-RAD 2 Management: Screening Mammogram of both breasts in 1 year. A negative mammogram report should not preclude additional follow up of suspicious palpable abnormalities. Patient should continue monthly self breast exam. A clinical breast exam by your physician is recommended on an annual basis and results should be correlated with mammographic findings. Electronically signed and approved by: Edmond Bradley D.O. Radiologis
== END ==
LOC: WWCWWP 12:36
PROVIDERS: ATTEND Obstetrics & Gynecology
DX: Z01.419 Encounter for gynecological examination (general) (routine) without abnormal findings (principal); E78.5 Hyperlipidemia, unspecified; I10 Essential (primary) hypertension; J45.909 Unspecified asthma, uncomplicated; M85.80 Other specified disorders of bone density and structure, unspecified site; K21.9 Gastro-esophageal reflux disease without esophagitis; E03.9 Hypothyroidism, unspecified; Z12.31 Encounter for screening mammogram for malignant neoplasm of breast; Z78.0 Asymptomatic menopausal state; Z79.890 Hormone replacement therapy; Z87.891 Personal history of nicotine dependence; Z80.3 Family history of malignant neoplasm of breast
CPT/HCPCS: 77063; 77067

== ENCOUNTER 2023-10-07 13:32 | Emergency (ER) | payer OTHER, MEDICARE ==
[2023-10-07 14:25] VITALS: RESP 18
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
[2023-10-07 16:45] VITALS: BP 137/77; PULSE 80; TEMP 97.8
== END 2023-10-07 15:58 | disposition home or self-care (01) ==
LOC: EC 13:32
DX: Z04.1 Encounter for examination and observation following transport accident (principal); Z87.891 Personal history of nicotine dependence
CPT/HCPCS: 70450; 72100; 72125; 99285

== ENCOUNTER → 2024-02-15 | Outpatient (CLI) | payer MEDICARE ==
[2024-02-15 09:31] VITALS: BP 130/81; PULSE 84; RESP 17; TEMP 98.1
--- NOTE | 2024-02-15 10:02 | P.HPOB ---
History of Present Illness H&P Date: 02/15/24 Chief Complaint: The patient is here for her routine gynecologic exam and ma mmogram. This is a 73-year-old G2, P2 with an LMP of 1989. The patient is status post DEE/BSO for benign reasons. She underwent a sling procedure and rectocele repair by Dr. Oc Huffman on 09/16/2021. She states she has done well after it, but states she now notices slight stress urinary incontinence. It is not as bad as before the procedure. She is otherwise without gynecologic complaints. Review of Systems Weight has been stable. She denies respiratory or GI problems. Cardiac: Occasional fluttering of the heart. 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 Past Medical History Past Medical History: Asthma, GERD/Reflux, Hyperlipidemia, Hypertension, Thyroid Disorder Additional Past Medical History / Comment(s): Hypothyroid. Osteopenia status post Actonel use for 5 years. 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 She did have endometriosis. She has tested BRCA negative. History of Any Multi-Drug Resistant Organisms: None Reported Past Surgical History: Hysterectomy Additional Past Surgical History / Comment(s): DEE BSO in 1989. Foot surgery. Colonoscopy 2015(next after 7yr). BLADDER SLING/RECTOCELE AUGUST 2021 Past Psychological History: No Psychological Hx Reported Smoking Status: Former smoker Past Alcohol Use History: None Reported Additional Past Alcohol Use History / Comment(s): Brief smoker as a teenager. Past Drug Use History: None Reported Additional History: She has been since 1966 and is not sexually active. 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 - Past Family History Sister(s) Family Medical History: Cancer, CVA/TIA Additional Family Medical History / Comment(s): 5 of 7 sisters had breast cancer. 3 of them are positive for BRCA. One sister who had breast cancer also had ovarian cancer. 1 sister who had breast cancer of a stroke. Niece Family Medical History: Cancer Additional Family Medical History / Comment(s): Breast cancer. Medications and Allergies Home Medications Medication Instructions Recorded Confirmed Type Atorvastatin [Lipitor] 20 mg PO DAILY 09/11/15 02/15/24 History Thyroid,Pork [[place] Thyroid] 60 mg PO BID 09/11/15 02/15/24 History Calcium Carbonate [Calcium] 600 mg PO QAM 11/15/18 02/15/24 History Olmesartan [Benicar] 20 mg PO HS 11/15/18 02/15/24 History estradioL [Vagifem] 10 mcg VAGINAL DIRECTED #24 tab 02/09/23 02/15/24 Rx Allergies Allergy/AdvReac Type Severity Reaction Status Date / Time No Known Allergies Allergy Verified 02/15/24 09:29 Exam Vital Signs Temp Pulse Resp BP Pulse Ox 02/15/24 09:29 98.1 F 84 17 130/81 96 Intake and Output 02/14/24 02/15/24 02/15/24 22:59 06:59 14:59 Other: Weight 80.739 kg Height 5 feet 8 inches, weight 178 pounds, BMI 27.1. This is a well-developed well-nourished white female who is alert and oriented times 3 in no acute distress. HEENT: Within normal limits. NECK: Supple without mass or thyromegaly. CHEST AND LUNGS: Clear to auscultation. HEART: Regular rate and rhythm. BREASTS: Are without mass or discharge. AXILLARY EXAM: Negative for adenopathy. BACK: Negative for CVA tenderness. ABDOMEN: Soft, nontender, without palpable masses. PELVIC EXAM: External genitalia appears normal with mild to moderate atrophy. Vagina appears normal with mild to moderate atrophy. There is no evidence of prolapse. Bladder is well supported and there is minimal urethral mobility with cough and Valsalva. No urinary leakage was demonstrated. Bimanual examination is negative for mass or tenderness. RECTAL EXAM: Rectovaginal exam is negative for mass or tenderness and is negative for occult blood. EXTREMITIES: Nontender. IMPRESSION: 1. 73-year-old menopausal female status post DEE/BSO for benign reasons, with normal gynecologic exam. 2. Mild stress urinary incontinence following a sling procedure in 2021 with no significant prolapse. 3. Family history of breast cancer. The patient is negative for the BRCA mutation. 4. History of osteopenia status post 5 years of Actonel use. PLAN: 1. Pap smears have been discontinued. 2. Self breast awareness was discussed with the patient. We have also discussed symptoms associated with inflammatory breast cancer. 3. Screening mammogram will be done today. 4. Osteoporosis prevention was discussed. I have stressed the importance of adequate calcium, vitamin D and regular exercise. Recommended amounts of calcium and vitamin D were also discussed. Bone density testing will be done today. 5. Continue Vagifem 10 mcg into the vagina 2 times weekly. The electronic prescription will be sent to [facility]. 6. I have recommended that she do Kegel exercises on a regular basis. Instructions were verbally given to the patient for this. She will also try to empty her bladder as completely as possible and void frequently to avoid having a full bladder. If her urinary symptoms are becoming a bigger problem, she was instructed to follow-up with Dr. Oc Huffman. 7. She was advised to return in one year for her annual well woman exam.
--- NOTE | 2024-02-15 23:20 | BD ---
EXAMINATION TYPE: Axial Bone Density DATE OF EXAM: 02/15/2024 CLINICAL HISTORY: 73 years old Female. ICD-10 CODE: Z780 POST CLEOPATRA WITHOUT HRT Height: 65.7in Weight: 176lb FRAX RISK QUESTIONS: History of Fracture in Adulthood: yes Secondary Osteoporosis: 3. Menopause before 45: yes RISK FACTORS HISTORY OF: History of Wrist Fracture: yes, left When: about 2009 MEDICATIONS: Thyroid Medications: Which medication: Gallagher How Long: about 15 years EXAM MEASUREMENTS: Bone mineral densitometry was performed using the [employer] System. Bone mineral density as measured about the Lumbar spine is: ----- L1-L4(G/cm2): 1.026 T Score Values are as follows: ----- L1: -2.1 ----- L2: -1.5 ----- L3: -0.7 ----- L4: -1.2 ----- L1-L4: -1.3 Z Score Values are as follows: ----- L1: -0.8 ----- L2: -0.3 ----- L3: 0.6 ----- L4: 0.1 ----- L1-L4: 0.0 Bone mineral density has: Decreased -6.6% since study of: 02-09-22 Bone mineral density about the R hip (g/cm2): 0.761 Bone mineral density about the L hip (g/cm2): 0.720 T Score values are as follows: -----R Neck: -1.7 -----L Neck: -1.8 -----R Total: -2.0 -----L Total: -2.3 Z Score values are as follows: -----R Neck: 0.0 -----L Neck: -0.2 -----R Total: -0.6 -----L Total: -0.9 Bone mineral density has: Decreased -6.6% since study of: 02-09-22 FRAX%s: The graph provided illustrates a 18.6% chance for a major osteoporotic fx and a 4.1% chance f or the hips probability for fx in 10 years time. IMPRESSION: Osteopenia (T Score between -2.5 and -1). There is slightly increased risk of fracture and the patient may be considered for treatment. Re-Screen 2-5 years. NOTE: T-SCORE=SD OF THE YOUNG ADULT MEAN. [facility], , 02/15/2024 11:17 PM
--- NOTE | 2024-02-16 13:25 | MM ---
Reason for Exam: Screening (asymptomatic). Last screening mammogram was performed 12 month(s) ago. Patient History: Menarche at age 11. First Full-Term at age 27. Left ovary removed at age 38. Right ovary removed at age 38. Hysterectomy at age 38. Postmenopausal. Patient used Hormonal Contraceptives for 7 years. Stereotactic Core Biopsy on the Right side. Sister had breast cancer, age 58. Sister had breast cancer, age 40. Sister had breast cancer, age 68. Sister had breast cancer, age 79. Nephew/Niece had breast cancer, age 48. Risk Values: Ashli 5 year model risk: 7.2%. NCI Lifetime model risk: 14.8%. Prior Study Comparison: 12/18/2020 Bilateral Screening Mammogram, [facility]. 02/04/2022 Bilateral MG 3D screening mammo w/cad, [facility]. 02/09/2023 Bilateral MG 3D screening mammo w/cad, [facility]. Tissue Density: There are scattered areas of fibroglandular density. Findings: Analyzed By CAD. Right breast biopsy clip. Right breast: There is no suspicious group of microcalcifications or new suspicious mass. Benign-appearing calcifications right breast. Left breast: There is no suspicious group of microcalcifications or new suspicious mass. Benign-appearing calcifications left breast. Overall Assessment: Benign, BI-RAD 2 Management: Screening Mammogram of both breasts in [address] [facility] will attempt to contact patient to return for supplemental views and ultrasound if indicated. Patient should continue monthly self-breast exams. A clinical breast exam by your physician is recommended on an annual basis. This exam should not preclude additional follow-up of suspicious palpable abnormalities. Note on Ashli scores and lifetime risk: 1. A Ashli score greater than 3% is considered moderate risk. If this is the case, consider specialist referral to assess eligibility for a risk reducing agent. 2. If overall lifetime risk for the development of breast cancer is 20% or higher, the patient may qualify for future screening with alternating mammogram and breast MRI. [facility], , 02/16/2024 1:23 PM. Electronically signed and approved by: Franc Leach DO
== END ==
LOC: WWCWWP 09:17
PROVIDERS: ATTEND Obstetrics & Gynecology
DX: Z12.31 Encounter for screening mammogram for malignant neoplasm of breast (principal); N39.3 Stress incontinence (female) (male); M81.8 Other osteoporosis without current pathological fracture; Z78.0 Asymptomatic menopausal state; Z90.722 Acquired absence of ovaries, bilateral; Z90.710 Acquired absence of both cervix and uterus; Z80.3 Family history of malignant neoplasm of breast; Z87.891 Personal history of nicotine dependence